=== PATIENT | male | born 1975 | race Caucasian/White ===

== ENCOUNTER 2021-10-10 10:25 | Outpatient (CLI) | payer OTHER ==
[2021-10-10 20:02] LABS: SARS-CoV-2 PCR by NAA DETECTED (NotDetected)
== END 2021-10-10 10:26 | disposition home or self-care (01) ==
LOC: CSHLAB 10:25
PROVIDERS: ATTEND Surgery
DX: U07.1 COVID-19 (principal)
CPT/HCPCS: U0003; U0005

== ENCOUNTER 2021-11-07 10:30 | Inpatient (IN) | payer OTHER ==
[2021-11-12] MEDS ORDERED: Lidocaine 1% MPF 2 ML VIAL ONE (07:14)
[2021-11-12] MEDS ORDERED: Midazolam HCl 2 mg/2 ml Vial ONE (07:20)
[2021-11-12] MEDS ORDERED: Famotidine/PF 20 mg/2ml Vial ONE (07:20)
[2021-11-12] MEDS ORDERED: Fentanyl 100 MCG/2 ML VIAL ONE ×3 (07:26→10:01)
[2021-11-12] MEDS ORDERED: PROPOFOL 40 ML ONE (07:26)
[2021-11-12] MEDS ORDERED: ceFAZolin 2 GM/Dextrose 50 ML IVPB ONE (07:27)
[2021-11-12] MEDS ORDERED: Lidocaine 2% PF 5 ML VIAL ONE (07:28)
[2021-11-12] MEDS ORDERED: Metoclopramide HCl 10 MG/2 ML VIAL ONE (07:29)
[2021-11-12] MEDS ORDERED: Ondansetron PF 4 MG/2 ML Vial ONE (07:29)
[2021-11-12] MEDS ORDERED: ePHEDrine Sulfate 50 MG/10 ML VIAL ONE (08:01)
[2021-11-12] MEDS ORDERED: PHENYLEPHRINE-NS 100 MCG/ML 10 ML SYRINGE ONE (08:26)
[2021-11-12] MEDS ORDERED: Ketorolac Tromethamine 30 MG/ML VIAL ONE (09:50)
[2021-11-12] MEDS ORDERED: Calcium Carbonate 500 MG ChewTAB PO PRN (09:55)
[2021-11-12] MEDS ORDERED: Promethazine HCl 25 MG/ML VIAL IM PRN (09:55)
[2021-11-12] MEDS ORDERED: Ondansetron PF 4 MG/2 ML Vial IVP PRN (09:55)
[2021-11-12] MEDS ORDERED: Dextrose 50% Abboject 50 ML SYRINGE SLOW IVP PRN (09:55)
[2021-11-12] MEDS ORDERED: hydrALAZINE 20 MG/ML VIAL SLOW IVP PRN (09:55)
[2021-11-12] MEDS ORDERED: Mag-Al 1200 mg/1200 mg/30 ML UDCUP PO PRN (09:55)
[2021-11-12] MEDS ORDERED: Dextrose 5% in Water 1,000 ML IV PRN (09:55)
[2021-11-12] MEDS: D5 1/2 NS w/20 mEq KCL 1,000 ML IV SCH ×2 (11:41→18:35)
[2021-11-12] MEDS: Morphine 2 MG/ML VIAL SLOW IVP PRN ×3 (11:42→19:51)
[2021-11-12] MEDS: HYDROcodone/Acetaminophen 10/325 mg Tablet PO PRN ×2 (13:21→22:50)
[2021-11-12] MEDS: Ketorolac Tromethamine 30 MG/ML VIAL IVP SCH ×2 (15:54→21:11)
[2021-11-12] MEDS: Carvedilol 6.25 MG TAB PO SCH (16:08)
[2021-11-12] MEDS: Lantus 1000 UNITS/10 ML VIAL SC SCH (19:51)
[2021-11-13] MEDS: D5 1/2 NS w/20 mEq KCL 1,000 ML IV SCH ×2 (02:31→10:11)
[2021-11-13] MEDS: Morphine 2 MG/ML VIAL SLOW IVP PRN ×2 (02:41→13:24)
[2021-11-13] MEDS: Ketorolac Tromethamine 30 MG/ML VIAL IVP SCH ×2 (04:14→10:11)
[2021-11-13] MEDS ORDERED: Ferrous Sulfate 325 MG TAB PO SCH (08:00)
[2021-11-13] MEDS ORDERED: Lisinopril 20 MG TAB PO SCH (09:00)
[2021-11-13] MEDS ORDERED: Enoxaparin Sodium 40 MG/0.4 ML SYRINGE SC SCH (09:00)
[2021-11-13] MEDS: Carvedilol 6.25 MG TAB PO SCH (09:02)
[2021-11-13] MEDS: HYDROcodone/Acetaminophen 10/325 mg Tablet PO PRN ×2 (09:03→16:25)
[2021-11-13] MEDS: Lantus 1000 UNITS/10 ML VIAL SC SCH (09:03)
[2021-11-13 12:45] VITALS: TEMP 97.8
[2021-11-13 17:18] VITALS: BP 156/82
== END 2021-11-13 17:42 | disposition home or self-care (01) | DRG 475 ==
LOC: CSHERHOLD 11-12 05:57 → CSHTELE 11-12 11:10
PROVIDERS: ADMIT Surgery; ATTEND Surgery
PROC: 0Y6H0Z3 Detachment at Right Lower Leg, Low, Open Approach (ICD-10-PCS; principal; 2021-11-12)
DX: T87.89 Other complications of amputation stump (principal); E11.52 Type 2 diabetes mellitus with diabetic peripheral angiopathy with gangrene; E11.69 Type 2 diabetes mellitus with other specified complication; I10 Essential (primary) hypertension; Y83.8 Other surgical procedures as the cause of abnormal reaction of the patient, or of later complication, without mention of misadventure at the time of the procedure
CPT/HCPCS: 36416; 88307; 94760; J0690; J1650; J1815; J1885; J2001; J2250; J2270; J2405; J2704; J2765; J3010; J3480; S0028

== ENCOUNTER 2022-01-01 19:44 | Emergency (ER) | payer OTHER, SELFPAY ==
[2022-01-01] MEDS ORDERED: HYDROcodone/Acetaminophen 5/325 mg Tablet ONE (20:54)
== END 2022-01-01 22:38 | disposition home or self-care (01) ==
LOC: CSHERS 19:44
DX: S80.01XA Contusion of right knee, initial encounter (principal); E11.9 Type 2 diabetes mellitus without complications; E78.5 Hyperlipidemia, unspecified; I10 Essential (primary) hypertension; Z79.899 Other long term (current) drug therapy; Z79.4 Long term (current) use of insulin; W10.9XXA Fall (on) (from) unspecified stairs and steps, initial encounter

== ENCOUNTER 2022-07-01 11:37 | Emergency (ER) | payer SELFPAY ==
[~2022-07-01 11:37] MED LIST: Iopamidol 300 61% 100 ML VIAL FS ONE
[2022-07-01 13:12] LABS: #Basophils 0.1 10x3/uL (0.0-0.2); #Eosinphils 0.4 10x3/uL (0.0-0.5); #Monocytes 0.6 10x3/uL (0.0-1.1); #Neutrophils 6.9 10x3/uL (1.5-8.4); %Basophils 0.5 % (0.0-2.0); %Eosinophils 4.1 % (0.0-6.0); %Lymphocytes 20.2 % (18.0-47.0); %Monocytes 5.6 % (0.0-10.0); %Neutrophils 69.3 % (40.0-75.0); Hemoglobin 13.9 g/dL (13.5-17.5); Mean Corpuscular HGB CONC 33.8 g/dL (32.0-36.0); Mean Corpuscular Hemoglobin 30.5 pg (27.0-33.0); Mean Corpuscular Volume 90.3 fl (81.2-95.1); Mean Platelet Volume 10.4 fl (7.4-10.4); Platelet Count 316 10x3/uL (150-450); RBC Distribution Width 12.6 % (11.5-14.5); Red Blood Cell (RBC) Count 4.55 10x6/uL (4.32-5.72)
[2022-07-01 13:18] LABS: ALT (SGPT) 9 U/L (8-55); AST (SGOT) 14 U/L (5-34); Albumin 3.9 g/dL (3.5-5.0); Alkaline Phosphatase 66 U/L (40-110); Anion Gap 12 mmol/L (10-20); BUN (Urea Nitrogen) 13 mg/dL (8.9-20.6); Bilirubin, Total 1.7 mg/dL (0.2-1.2); Calc. Creatinine Clearance 0 mL/min (70-130); Calcium 9.1 mg/dL (7.8-10.44); Carbon Dioxide 28 mmol/L (22-29); Chloride 103 mmol/L (98-107); Estimated GFR 107; Globulin 4.4 g/dL (2.4-3.5); Glucose 62 mg/dL (70-105); Potassium 3.9 mmol/L (3.5-5.1); Protein, Total 8.3 g/dL (6.0-8.3); Sodium 139 mmol/L (136-145)
== END 2022-07-01 14:37 | disposition home or self-care (01) ==
LOC: CSHERS 11:37
DX: E11.628 Type 2 diabetes mellitus with other skin complications (principal); E78.5 Hyperlipidemia, unspecified; I10 Essential (primary) hypertension
CPT/HCPCS: 74177; 80053; 85025; Q9967

== ENCOUNTER 2023-08-19 17:43 | Emergency (ER) | payer SELFPAY ==
[2023-08-19 18:37] LABS: ALT (SGPT) 26 U/L (8-55); AST (SGOT) 18 U/L (5-34); Alkaline Phosphatase 72 U/L (40-110); Anion Gap 17 mmol/L (10-20); BUN (Urea Nitrogen) 15 mg/dL (8.9-20.6); Bilirubin, Total 0.9 mg/dL (0.2-1.2); Calc. Creatinine Clearance 0 mL/min (70-130); Calcium 8.9 mg/dL (7.8-10.44); Carbon Dioxide 25 mmol/L (22-29); Chloride 99 mmol/L (98-107); Estimated GFR 101; Glucose 207 mg/dL (70-105); Potassium 3.9 mmol/L (3.5-5.1); Sodium 137 mmol/L (136-145)
[2023-08-19 18:38] LABS: #Eosinphils 0.2 10x3/uL (0.0-0.5); #Monocytes 0.4 10x3/uL (0.0-1.1); #Neutrophils 4.1 10x3/uL (1.5-8.4); %Basophils 0.4 % (0.0-2.0); %Eosinophils 3.3 % (0.0-6.0); %Lymphocytes 30.6 % (18.0-47.0); %Monocytes 6.3 % (0.0-10.0); %Neutrophils 59.1 % (40.0-75.0); Hematocrit 41.9 % (38.8-50.0); Hemoglobin 14.6 g/dL (13.5-17.5); Mean Corpuscular HGB CONC 34.8 g/dL (32.0-36.0); Mean Corpuscular Hemoglobin 30.5 pg (27.0-33.0); Mean Corpuscular Volume 87.5 fl (81.2-95.1); Mean Platelet Volume 10.9 fl (7.4-10.4); Platelet Count 299 10x3/uL (150-450); RBC Distribution Width 11.9 % (11.5-14.5); Red Blood Cell (RBC) Count 4.79 10x6/uL (4.32-5.72)
== END 2023-08-19 19:26 | disposition home or self-care (01) ==
LOC: CSHERS 17:43
DX: E11.621 Type 2 diabetes mellitus with foot ulcer (principal); L97.429 Non-pressure chronic ulcer of left heel and midfoot with unspecified severity; I10 Essential (primary) hypertension
CPT/HCPCS: 80053; 85025